=== PATIENT | female | born 1985 | race Caucasian/White ===

== ENCOUNTER 2017-03-13 15:10 | Inpatient (IN) | payer OTHER ==
[2017-03-13] MEDS ORDERED: LACTATED RINGER'S 1,000 ML IV (16:15)
[2017-03-13] MEDS ORDERED: CEFAZOLIN 2 GM/50 ML (PMX) 50 ML IV (16:30)
[2017-03-13] MEDS ORDERED: MISOPROSTOL 200 MCG TAB PR ×2 (16:30→23:30)
[2017-03-13] MEDS ORDERED: CARBOPROST 250 MCG INJ IM ×2 (16:30→23:30)
[2017-03-13] MEDS ORDERED: METHYLERGONOVINE 0.2 MG INJ IM ×2 (16:30→23:30)
[2017-03-13] MEDS ORDERED: OXYTOCIN 30 UNITS/LR 500 ML IV ×2 (16:30→23:30)
[2017-03-13 16:31] LABS: ADD MAN DIFF? NO
[2017-03-13 16:33] LABS: WHITE BLOOD COUNT 11.9 10^3/ul (4.8-10.8)
[2017-03-13 16:33] LABS: BASOPHILS % 0.3 % (0.0-2.0); EOSINOPHILS # 0.1 10^3/ul (0.0-0.5); EOSINOPHILS % 0.6 % (0.0-7.0); HEMATOCRIT 38.1 % (37.0-47.0); HEMOGLOBIN 12.9 g/dl (12.0-16.0); LYMPHOCYTES # 1.7 10^3/ul (0.8-2.9); LYMPHOCYTES % 14.1 % (15.0-51.0); MEAN CORPUSCULAR HEMOGLOBIN 30.2 pg (29.0-33.0); MEAN CORPUSCULAR HGB CONC 33.9 g/dl (32.0-37.0); MEAN CORPUSCULAR VOLUME 89.2 fl (82.0-101.0); MEAN PLATELET VOLUME 10.3 fl (7.4-10.4); MONOCYTE # 0.5 10^3/ul (0.3-0.9); MONOCYTES % 4.3 % (0.0-11.0); NEUTROPHIL # 9.5 10^3/ul (1.6-7.5); PLATELET COUNT 195 10^3/UL (140-415); RED BLOOD COUNT 4.27 10^6/ul (4.20-5.40); RED CELL DISTRIBUTION WIDTH 13.3 % (11.5-14.5)
[2017-03-13 16:48] LABS: INR 0.89; PROTIME 12.1 Sec (11.9-14.9); PT RATIO 0.9
[2017-03-13 16:49] LABS: PARTIAL THROMBOPLASTIN TIME 25.9 Sec (25.0-35.0)
[2017-03-13 17:21] LABS: HEPATITIS B SURFACE ANTIGEN NEGATIVE (NEGATIVE)
[2017-03-13] MEDS: CITRIC ACID/SODIUM CITRATE 15 ML CUP PO (17:51)
[2017-03-13] MEDS: ONDANSETRON 4 MG INJ IV (17:51)
[2017-03-13] MEDS ORDERED: PHENYLephrine (100 MCG/ML) 5ML SYG (18:13)
[2017-03-13] MEDS ORDERED: METOCLOPRAMIDE 10 MG INJ (18:13)
[2017-03-13] MEDS ORDERED: morphine SULFATE/PF (10 MG/10 ML) INJ (18:13)
[2017-03-13] MEDS ORDERED: OXYTOCIN 10 UNIT INJ (18:13)
[2017-03-13] MEDS ORDERED: FENTAnyl 50 MCG/ML VIAL (18:13)
[2017-03-13] MEDS ORDERED: HYDROmorphONE (0.2 MG/ML) 10ML SYG IV ×3 (19:00)
[2017-03-13] MEDS ORDERED: FENTAnyl 50 MCG/ML VIAL IV ×3 (19:00)
[2017-03-13] MEDS ORDERED: EPHEDrine SULFATE 50 MG/5 ML SYG IV (19:00)
[2017-03-13] MEDS ORDERED: LABETALOL HCL 20MG INJ IV (19:00)
[2017-03-13] MEDS ORDERED: ONDANSETRON 4 MG INJ IV ×2 (19:00)
[2017-03-13] MEDS ORDERED: NALOXONE (0.4 MG/ML) INJ IV (19:00)
[2017-03-13] MEDS ORDERED: DIPHENHYDRAMINE 50 MG INJ IV ×2 (19:00)
[2017-03-13] MEDS ORDERED: TRIMETHOBENZAMIDE 100 MG/ML VIAL IM ×2 (19:00)
[2017-03-13] MEDS ORDERED: MEPERIDINE 25 MG INJ IV (19:00)
[2017-03-13] MEDS ORDERED: morphine 2 MG INJ IV (19:00)
[2017-03-13] MEDS ORDERED: ALBUTEROL 0.083% (NEB) 2.5 MG/3 ML AMP HHN (19:00)
[2017-03-13] MEDS ORDERED: IPRATROPIUM (NEB) 0.5 MG/2.5 ML AMP HHN (19:00)
[2017-03-13] MEDS ORDERED: NALBUPHINE HCL (10 MG/1 ML) INJ IV (19:00)
[2017-03-13] MEDS ORDERED: OXYCODONE/ACETAMINOPHEN (5/325) TAB PO ×2 (19:00)
[2017-03-13] MEDS ORDERED: hydrALAzine 20 MG INJ IV (19:00)
[2017-03-13] MEDS ORDERED: morphine 4 MG/ML VIAL IV (19:00)
[2017-03-13] MEDS: OXYTOCIN 30 UNITS/LR 500 ML IV (20:00)
[2017-03-13] MEDS: LACTATED RINGER'S 1,000 ML IV (23:09)
[2017-03-13] MEDS: KETOROLAC 30 MG INJ IV (23:20)
[2017-03-14] MEDS: OXYTOCIN 30 UNITS/LR 500 ML IV (00:08)
[2017-03-14 08:22] LABS: ADD MAN DIFF? NO
[2017-03-14 08:29] LABS: BASOPHILS % 0.3 % (0.0-2.0); EOSINOPHILS # 0.1 10^3/ul (0.0-0.5); EOSINOPHILS % 0.4 % (0.0-7.0); HEMATOCRIT 31.1 % (37.0-47.0); HEMOGLOBIN 10.5 g/dl (12.0-16.0); LYMPHOCYTES # 0.9 10^3/ul (0.8-2.9); LYMPHOCYTES % 7.6 % (15.0-51.0); MEAN CORPUSCULAR HEMOGLOBIN 30.6 pg (29.0-33.0); MEAN CORPUSCULAR HGB CONC 33.8 g/dl (32.0-37.0); MEAN CORPUSCULAR VOLUME 90.7 fl (82.0-101.0); MEAN PLATELET VOLUME 9.9 fl (7.4-10.4); MONOCYTE # 0.6 10^3/ul (0.3-0.9); MONOCYTES % 4.8 % (0.0-11.0); NEUTROPHIL # 9.8 10^3/ul (1.6-7.5); NEUTROPHILS % 86.5 % (39.0-77.0); PLATELET COUNT 145 10^3/UL (140-415); RED BLOOD COUNT 3.43 10^6/ul (4.20-5.40); RED CELL DISTRIBUTION WIDTH 13.4 % (11.5-14.5)
[2017-03-14 08:29] LABS: WHITE BLOOD COUNT 11.4 10^3/ul (4.8-10.8)
[2017-03-14] MEDS: SENNA/DOCUSATE NA (8.6MG/50MG) TAB PO ×2 (09:05→21:52)
[2017-03-14] MEDS: KETOROLAC 30 MG INJ IV ×2 (09:05→16:01)
[2017-03-14] MEDS: LANOLIN 7 GM TUBE TOP (09:08)
[2017-03-14] MEDS: LACTATED RINGER'S 1,000 ML IV ×3 (09:15→23:09)
[2017-03-14] MEDS: OXYCODONE/ACETAMINOPHEN (5/325) TAB PO (18:32)
[2017-03-14] MEDS: IBUPROFEN 800 MG TAB PO (21:52)
[2017-03-14 22:21] LABS: RAPID PLASMA REAGIN NONREACTIVE (NR)
[2017-03-15] MEDS: OXYCODONE/ACETAMINOPHEN (5/325) TAB PO ×2 (01:54→10:56)
[2017-03-15] MEDS: IBUPROFEN 800 MG TAB PO ×3 (06:00→21:51)
[2017-03-15] MEDS: SENNA/DOCUSATE NA (8.6MG/50MG) TAB PO ×2 (09:10→21:51)
[2017-03-16] MEDS: IBUPROFEN 800 MG TAB PO ×3 (06:00→21:51)
[2017-03-16] MEDS: DIPHTH/TET/ACEL PERTUSS (ADULT) 0.5 ML VIAL IM* (09:05)
[2017-03-16] MEDS: SENNA/DOCUSATE NA (8.6MG/50MG) TAB PO ×2 (09:27→21:51)
[2017-03-16] MEDS: OXYCODONE/ACETAMINOPHEN (5/325) TAB PO ×2 (11:14→20:45)
[2017-03-17] MEDS: IBUPROFEN 800 MG TAB PO (06:00)
[2017-03-17] MEDS: SENNA/DOCUSATE NA (8.6MG/50MG) TAB PO (09:03)
== END 2017-03-17 12:15 | disposition home or self-care (01) | DRG 766 ==
LOC: L-D 15:10 → PP1 22:48
PROVIDERS: Obstetrics & Gynecology
PROC: 10D00Z1 Extraction of Products of Conception, Low, Open Approach (ICD-10-PCS; principal; 2017-03-13 17:00)
PROC: 0UL70ZZ Occlusion of Bilateral Fallopian Tubes, Open Approach (ICD-10-PCS; 2017-03-13 17:00)
PROC: 3E033VJ Introduction of Other Hormone into Peripheral Vein, Percutaneous Approach (ICD-10-PCS; 2017-03-13 17:00)
DX: O34.211 Maternal care for low transverse scar from previous cesarean delivery (principal); N73.6 Female pelvic peritoneal adhesions (postinfective); Z30.2 Encounter for sterilization; Z37.0 Single live birth; Z3A.39 39 weeks gestation of pregnancy
CPT/HCPCS: 85025; 85610; 85730; 86592; 86850; 86900; 86901; 87340; 88302; 90715; 94760; 99464